=== PATIENT | male | born 1990 | race Caucasian/White ===

== ENCOUNTER 2018-06-23 11:06 | Emergency (ER) | payer OTHER ==
[2018-06-23 11:15] VITALS: RESP 18
[2018-06-23] MEDS ORDERED: KETOROLAC 30 MG/ML 1 ML VIAL IM STA (11:39)
--- NOTE | 2018-06-23 12:14 | XR ---
EXAMINATION TYPE: XR chest 2V DATE OF EXAM: 06/23/2018 COMPARISON: NONE HISTORY: Posterior chest pain TECHNIQUE: Frontal and lateral views of the chest are obtained. FINDINGS: There is no focal air space opacity, pleural effusion, or pneumothorax seen. The cardiac silhouette size is within normal limits. There is a mild spinal curvature. Mild biapical pleural th ickening. The osseous structures are intact. IMPRESSION: No acute cardiopulmonary process.
--- NOTE | 2018-06-23 12:37 | ED ---
General Adult HPI - General Chief complaint: Back Pain/Injury Stated complaint: back pain Time Seen by Provider: 06/23/18 11:20 Source: patient, RN notes reviewed Mode of arrival: ambulatory Limitations: no limitations - History of Present Illness Initial comments: 28-year-old male presents to the emergency department for a chief complaint of left upper back pain. Patient states this started after he was working and lifting heavy materials. Patient states he has had similar problems in the right side of his back. Patient states he believes he has a knot in his back. States he needs a note for work. Patient denies any chest pain. States pain is worse with movement of the left arm. Denies any shortness of breath.Patient has no other complaints at this time including shortness of breath, chest pain, abdominal pain, nausea or vomiting, headache, or visual changes. - Related Data Home Medications Medication Instructions Recorded Confirmed Ibuprofen [Motrin Ib] 400 mg PO Q6H PRN 06/23/18 06/23/18 Multivitamin,Therapeutic [Thera] 1 tab PO DAILY 06/23/18 06/23/18 Allergies Allergy/AdvReac Type Severity Reaction Status Date / Time amoxicillin Allergy Unknown Verified 06/23/18 11:59 Milk Containing Products AdvReac Nausea & Verified 06/23/18 11:59 Stomach cramps sulfamethoxazole AdvReac Swelling Verified 06/23/18 11:59 [From Bactrim] trimethoprim [From Bactrim] AdvReac Swelling Verified 06/23/18 11:59 Review of Systems ROS Statement: Those systems with pertinent positive or pertinent negative responses have been documented in the HPI. ROS Other: All systems not noted in ROS Statement are negative. Past Medical History Past Medical History: Musculoskeletal Disorder Additional Past Medical History / Comment(s): torn muscle in his shoulder 12 years ago. Pt. states he has limited jaw opening due to growth plate. History of Any Multi-Drug Resistant Organisms: None Reported Additional Past Surgical History / Comment(s): jaw surgery Past Anesthesia/Blood Transfusion Reactions: No Reported Reaction Past Psychological History: Bipolar, Depression, Schizophrenia Smoking Status: Current every day smoker Past Alcohol Use History: Heavy Past Drug Use History: Marijuana - Past Family History Father Additional Family Medical History / Comment(s): Patient states he is adopted and does not know his family's medical history. He has one son that is 6 months old but states that he is not sure if this child is his as he thinks it's really his roommate's. General Exam Limitations: no limitations General appearance: alert, in no apparent distress Head exam: Present: atraumatic, normocephalic, normal inspection Eye exam: Present: normal appearance, PERRL, EOMI. Absent: scleral icterus, conjunctival injection, periorbital swelling ENT exam: Present: normal exam, mucous membranes moist Neck exam: Present: normal inspection, full ROM. Absent: tenderness, meningismus, lymphadenopathy Respiratory exam: Present: normal lung sounds bilaterally. Absent: respiratory distress, wheezes, rales, rhonchi, stridor Cardiovascular Exam: Present: regular rate, normal rhythm, normal heart sounds. Absent: systolic murmur, diastolic murmur, rubs, gallop, clicks GI/Abdominal exam: Present: soft, normal bowel sounds. Absent: distended, tenderness, guarding, rebound, rigid Extremities exam: Present: normal capillary refill (Refill less than 2 seconds, radial pulse 2+ in the left upper extremity) Back exam: Present: full ROM, tenderness (Tenderness noted to trapezius muscle near left scapula), muscle spasm (Muscle spasm noted inferior to the left scapula, tender to palpation) Neurological exam: Present: alert, oriented X3, CN II-XII intact Psychiatric exam: Present: normal affect, normal mood Course Vital Signs 06/23/18 06/23/18 11:12 12:50 Temperature 98.8 F 98.1 F Pulse Rate 73 61 Respiratory 18 18 Rate Blood Pressure 136/87 138/94 O2 Sat by Pulse 98 98 Oximetry Medical Decision Making - Medical Decision Making 28-year-old male presents to the emergency department for a chief complaint of left upper back pain after working and lifting heavy objects. On exam patient does have tenderness noted inferior to the left scapula with muscle spasm noted. Neurovascular status intact the left upper extremity. X-ray of the chest is negative. Exam consistent with musculoskeletal back pain given pain is reproducible on exam, muscle spasm noted, pain worsened with movement of the left arm as well as history of heavy lifting. Patient states he needs a note for work. Patient will follow up with primary care in 2 days or return here if he has any worsening symptoms. Disposition Clinical Impression: Musculoskeletal back pain Disposition: HOME SELF-CARE Condition: Good Instructions (If sedation given, give patient instructions): Acute Low Back Pain (ED) Additional Instructions: Please take Motrin and Tylenol for pain. Please follow-up with primary care in 1-2 days. Return here to the emergency department if you have any worsening symptoms. Is patient prescribed a controlled substance at d/c from ED?: No Referrals: Keyona Zaman MD [REFERRING] - 1-2 days Time of Disposition: 12:36
[2018-06-23 12:57] VITALS: BP 138/94; PULSE 61; TEMP 98.1
== END 2018-06-23 12:50 | disposition home or self-care (01) ==
LOC: EC 11:06
DX: M54.9 Dorsalgia, unspecified (principal); M62.830 Muscle spasm of back; F17.200 Nicotine dependence, unspecified, uncomplicated; Z88.0 Allergy status to penicillin; Z88.1 Allergy status to other antibiotic agents; Z88.2 Allergy status to sulfonamides; Z91.011 Allergy to milk products
CPT/HCPCS: 71046; 99283; 96372; J1885

== ENCOUNTER 2018-08-21 15:43 | Emergency (ER) | payer OTHER ==
[2018-08-21 16:04] VITALS: BP 137/89; PULSE 100; RESP 18; TEMP 98.6
[2018-08-21] MEDS ORDERED: IBUPROFEN 800 MG TAB PO STA (16:16)
--- NOTE | 2018-08-21 16:39 | XR ---
EXAMINATION TYPE: XR ankle complete RT, XR foot complete RT DATE OF EXAM: 08/21/2018 CLINICAL HISTORY: Right ankle and foot pain after injury. Pain is localized laterally. TECHNIQUE: Frontal, lateral and oblique images of the right ankle and foot are obtained. COMPARISON: None. FINDINGS: There is no acute fracture/dislocation evident in the right ankle. The ankle mortise appe ars within normal limits. The overlying soft tissue appears unremarkable. There is no acute fracture or dislocation evident in the right foot. The joint spaces in the right foot are preserved. [place] ing soft tissue is unremarkable. IMPRESSION: There is no acute fracture or dislocation in the right ankle or foot.
--- NOTE | 2018-08-21 16:40 | ED ---
Fall HPI - General Chief Complaint: Fall Stated Complaint: Foot injury Time Seen by Provider: 08/21/18 16:09 Source: patient Mode of arrival: ambulatory - History of Present Illness Initial Comments: Patient is a 28-year-old male presents with chief complaint of ankle pain after a fall injury yesterday. Patient states that while he was at work, he slipped off of a three-foot ledge and rolled his right ankle. He states that initially after the injury was to continue working. Over time however his pain became greater and his range of motion became limited. He complains of pain along the lateral aspect of his right ankle. He states that his pain is worse with movement and bearing weight. He states he feels a popping sensation with movement of the right ankle. Alleviating factors include rest. His pain is a 6 out of 10 while at rest. He denies any other injuries at this time. - Related Data Home Medications Medication Instructions Recorded Confirmed Multivitamin,Therapeutic [Thera] 1 tab PO HS 06/23/18 08/21/18 Previous Rx's Medication Instructions Recorded Acetaminophen Tab [Tylenol Tab] 1,000 mg PO Q6HR #20 tablet 08/21/18 Ibuprofen [Motrin] 800 mg PO TID #20 tab 08/21/18 Allergies Allergy/AdvReac Type Severity Reaction Status Date / Time amoxicillin Allergy Unknown Verified 08/21/18 16:17 sulfamethoxazole AdvReac Swelling Verified 08/21/18 16:17 [From Bactrim] trimethoprim [From Bactrim] AdvReac Swelling Verified 08/21/18 16:17 Review of Systems ROS Statement: Those systems with pertinent positive or pertinent negative responses have been documented in the HPI. ROS Other: All systems not noted in ROS Statement are negative. Musculoskeletal: Reports: arthralgia Past Medical History Past Medical History: Musculoskeletal Disorder Additional Past Medical History / Comment(s): torn muscle in his shoulder 12 years ago. Pt. states he has limited jaw opening due to growth plate. History of Any Multi-Drug Resistant Organisms: None Reported Additional Past Surgical History / Comment(s): jaw surgery Past Anesthesia/Blood Transfusion Reactions: No Reported Reaction Past Psychological History: Bipolar, Depression, Schizophrenia Smoking Status: Former smoker Past Alcohol Use History: Occasional Past Drug Use History: None Reported - Past Family History Father Additional Family Medical History / Comment(s): Patient states he is adopted and does not know his family's medical history. He has one son that is 6 months old but states that he is not sure if this child is his as he thinks it's really his roommate's. General Exam Limitations: no limitations General appearance: alert, in no apparent distress Head exam: Present: atraumatic, normocephalic Eye exam: Present: normal appearance ENT exam: Present: normal exam Neck exam: Present: normal inspection Respiratory exam: Absent: respiratory distress Cardiovascular Exam: Present: regular rate, normal rhythm GI/Abdominal exam: Present: soft. Absent: distended, tenderness Rectal exam: Present: deferred Extremities exam: Present: joint swelling (Patient has mild swelling along the lateral aspect of the right ankle. He is neurovascularly intact bilaterally in the lower extremities.) Back exam: Present: normal inspection Neurological exam: Present: alert, oriented X3 Psychiatric exam: Present: normal affect, normal mood Skin exam: Present: warm, dry, intact Course Vital Signs 08/21/18 16:02 Temperature 98.6 F Pulse Rate 100 Respiratory 18 Rate Blood Pressure 137/89 O2 Sat by Pulse 98 Oximetry Medical Decision Making - Medical Decision Making Patient presents with a chief complaint of ankle pain after a fall from a three- foot ledge yesterday at work. On initial evaluation, vitals are stable, patient is in no acute distress. Patient to be evaluated with x-rays of the ankle and foot. 4:44 PM X-ray evaluation does not show any acute fractures or dislocations. At this time, patient will be placed in a postop shoe and given crutches. He was instructed to use Motrin and Tylenol for pain. He was given orthopedic follow- up and instructed to follow-up with orthopedics in one week if his pain is not improving. Return to the ED if symptoms worsen or change. Disposition Clinical Impression: Ankle sprain Disposition: HOME SELF-CARE Condition: Good Instructions (If sedation given, give patient instructions): Ankle Sprain (ED) Additional Instructions: Use Motrin and tylenol for pain. You can alternate those medications at the prescribed dosage every 4 hours as needed for pain. Follow up with Primary care and Orthopaedics. Is patient prescribed a controlled substance at d/c from ED?: No Referrals: None,Stated [Primary Care Provider] - 1-2 days Kevin Kincaid MD [Medical Doctor] - 1-2 days
== END 2018-08-21 17:15 | disposition home or self-care (01) ==
LOC: EC 15:43
DX: S93.401A Sprain of unspecified ligament of right ankle, initial encounter (principal); Z88.0 Allergy status to penicillin; Z88.1 Allergy status to other antibiotic agents; Z88.2 Allergy status to sulfonamides; Z87.891 Personal history of nicotine dependence; W01.0XXA Fall on same level from slipping, tripping and stumbling without subsequent striking against object, initial encounter; Y92.69 Other specified industrial and construction area as the place of occurrence of the external cause; Y99.0 Civilian activity done for income or pay
CPT/HCPCS: 99283

== ENCOUNTER 2020-06-26 15:42 | Emergency (ER) | payer OTHER, BC ==
[2020-06-26 17:16] VITALS: BP 149/86; PULSE 83; RESP 18; TEMP 98.4
--- NOTE | 2020-06-26 20:49 | ED ---
General Adult HPI - General Chief complaint: Psychiatric Symptoms Stated complaint: mental health Source: patient, RN notes reviewed Mode of arrival: ambulatory Limitations: no limitations - History of Present Illness Initial comments: Patient is a 30-year-old male that presents to emergency department looking for a short supply of his psych meds. He noted that he recently quit drinking and has been off his medications for a while. He notes that since he quit drinkingthing getting more more depressed and is afraid that he might end up in the same situation that caused him to be admitted to the hospital last time. She denied any other complaints or issues. He denied any chest pain shortness breath headache nausea vomiting diarrhea constipation fever fatigue chills. - Related Data Home Medications Medication Instructions Recorded Confirmed Multivitamin,Therapeutic [Thera] 1 tab PO HS 06/23/18 08/21/18 Previous Rx's Medication Instructions Recorded Acetaminophen Tab [Tylenol Tab] 1,000 mg PO Q6HR #20 tablet 08/21/18 Ibuprofen [Motrin] 800 mg PO TID #20 tab 08/21/18 Allergies Allergy/AdvReac Type Severity Reaction Status Date / Time amoxicillin Allergy Unknown Verified 06/26/20 17:11 sulfamethoxazole AdvReac Swelling Verified 06/26/20 17:11 [From Bactrim] trimethoprim [From Bactrim] AdvReac Swelling Verified 06/26/20 17:11 Review of Systems ROS Statement: Those systems with pertinent positive or pertinent negative responses have been documented in the HPI. ROS Other: All systems not noted in ROS Statement are negative. Past Medical History Past Medical History: Musculoskeletal Disorder Additional Past Medical History / Comment(s): torn muscle in his shoulder 12 years ago. Pt. states he has limited jaw opening due to growth plate. History of Any Multi-Drug Resistant Organisms: None Reported Additional Past Surgical History / Comment(s): jaw surgery Past Anesthesia/Blood Transfusion Reactions: No Reported Reaction Past Psychological History: Bipolar, Depression, Schizophrenia Smoking Status: Former smoker Past Alcohol Use History: Abuse, Daily Past Drug Use History: Marijuana - Past Family History Father Additional Family Medical History / Comment(s): Patient states he is adopted and does not know his family's medical history. He has one son that is 6 months old but states that he is not sure if this child is his as he thinks it's really his roommate's. General Exam Limitations: no limitations General appearance: alert, in no apparent distress Head exam: Present: atraumatic, normocephalic, normal inspection Eye exam: Present: normal appearance, PERRL, EOMI. Absent: scleral icterus, conjunctival injection, periorbital swelling Neck exam: Present: normal inspection. Absent: tenderness, meningismus, lympha denopathy Respiratory exam: Present: normal lung sounds bilaterally. Absent: respiratory distress, wheezes, rales, rhonchi, stridor Cardiovascular Exam: Present: regular rate, normal rhythm, normal heart sounds. Absent: systolic murmur, diastolic murmur, rubs, gallop, clicks GI/Abdominal exam: Present: soft, normal bowel sounds. Absent: distended, tenderness, guarding, rebound, rigid Extremities exam: Present: normal inspection, full ROM, normal capillary refill. Absent: tenderness, pedal edema, joint swelling, calf tenderness Back exam: Present: normal inspection Neurological exam: Present: alert, oriented X3, CN II-XII intact Psychiatric exam: Present: normal affect, depressed Skin exam: Present: warm, dry, intact, normal color. Absent: rash Course Vital Signs 06/26/20 17:12 Temperature 98.4 F Pulse Rate 83 Respiratory 18 Rate Blood Pressure 149/86 O2 Sat by Pulse 99 Oximetry Medical Decision Making - Medical Decision Making 30-year-old male feels like he is getting more depressed asking for a short supply of medication refills. Breath alcohol test and drug screen ordered. Case discussed with Dr. Andrade, patient will follow-up outpatient with primary care or psychiatric to get medications refilled. Disposition Clinical Impression: Depression Disposition: HOME SELF-CARE Condition: Stable Instructions (If sedation given, give patient instructions): Depression (ED) Additional Instructions: Please return to the Emergency Department if symptoms worsen or any other concerns. Follow-up with primary care to medications refilled. Is patient prescribed a controlled substance at d/c from ED?: No Referrals: Wiley Becker MD [Primary Care Provider] - 1-2 days Time of Disposition: 20:59
--- NOTE | 2020-06-26 21:20 | ED ---
Medical Decision Making - Medical Decision Making Patient was seen by myself at approximately 8:20 PM on 06/26/2020. Disposition Clinical Impression: Depression Disposition: HOME SELF-CARE Condition: Stable Instructions (If sedation given, give patient instructions): Depression (ED) Additional Instructions: Please return to the Emergency Department if symptoms worsen or any other concerns. Follow-up with primary care to medications refilled. Is patient prescribed a controlled substance at d/c from ED?: No Referrals: Wiley Becker MD [Primary Care Provider] - 1-2 days
== END 2020-06-26 21:18 | disposition home or self-care (01) ==
LOC: EC 15:42
DX: F32.9 Major depressive disorder, single episode, unspecified (principal); F20.9 Schizophrenia, unspecified; F12.90 Cannabis use, unspecified, uncomplicated; Z87.891 Personal history of nicotine dependence
CPT/HCPCS: 99284